=== PATIENT | female | born 1990 | race Caucasian/White ===

== ENCOUNTER 2017-04-18 12:47 | Emergency (ER) | payer OTHER ==
[~2017-04-18] VITALS: Ht 154.9 cm; Wt 65.8 kg
[~2017-04-18 12:47] MED LIST: Cleocin HCl300 MG PO; IBUP800 PO; OXYACE5T PO; RANI150 PO; SERT100 PO
[2017-04-18] MEDS ORDERED: [UNRECOGNIZED DRUG - OTHER] PO (12:52)
[2017-04-18] MEDS ORDERED: Prozac20 MG (12:52)
[2017-04-18] MEDS ORDERED: PRAZ2 PO (12:53)
[2017-04-18] MEDS ORDERED: ALBU90OI INH (12:53)
[2017-04-18 14:10] LABS: Calcium, Ionized (POC) 1.26 mmol/L (1.10-1.46); Chloride (POC) 101 mmol/L (98-108); Creatinine (POC) 0.6 mg/dL (0.6-1.0); Glucose (ISTAT POC) 106 mg/dL (70-99); Hemoglobin (POC) 9.9 g/dL (12.0-16.0); Potassium (POC) 3.9 mmol/L (3.5-5.5); Sodium (POC) 138 mmol/L (135-148); Total CO2 (POC) 27 mmol/L (21-32)
== END 2017-04-18 15:02 | disposition home or self-care (01) ==
LOC: ER 12:47
PROVIDERS: Emergency Medicine
DX: R56.9 Unspecified convulsions (principal); F17.200 Nicotine dependence, unspecified, uncomplicated; Z88.0 Allergy status to penicillin; Z79.899 Other long term (current) drug therapy
CPT/HCPCS: 36415; 80047; 81000; 81025; 85014; 99283